=== PATIENT | female | born 1965 | race Caucasian/White ===

== ENCOUNTER → 2016-08-05 | Outpatient (CLI) | payer BC | END | disposition home or self-care (01) | LOC: CFH 07:47 | PROVIDERS: ATTEND Obstetrics & Gynecology Female Pelvic Medicine and Reconstructive Surgery | DX: Z12.31 Encounter for screening mammogram for malignant neoplasm of breast (principal); N89.9 Noninflammatory disorder of vagina, unspecified; N93.9 Abnormal uterine and vaginal bleeding, unspecified; N83.292 Other ovarian cyst, left side; N83.291 Other ovarian cyst, right side | CPT/HCPCS: 76830; G0202 ==

== ENCOUNTER → 2018-06-06 | Outpatient (CLI) | payer BC | END | disposition home or self-care (01) | LOC: CFH 14:15 | PROVIDERS: ATTEND Family Medicine | DX: Z12.31 Encounter for screening mammogram for malignant neoplasm of breast (principal) | CPT/HCPCS: 77067 ==